=== PATIENT | female | born 1980 | race Hispanic/Latino ===

== ENCOUNTER 2022-05-25 07:30 | Outpatient (RCR) | payer OTHER, SELFPAY ==
--- NOTE | 2022-05-10 16:16 | PTOPEVAL1 ---
Assessment and note entered by Monica Galvin, PT Evaluation Information Assessment Status Evaluation Diagnosis low back pain Onset November 2021 Subjective Information gradual increase in pain in back, off/on for past 6 months, may be due to standing at work; no injury or trauma to back; Reported Pain Level Pain Score Self Report Additional Pain Score Comments pain range of 4-10/10; pressure over R and L lumbar paraspinals; increase with standing and working; decrease with rest, supine, tylenol; have not used heat/ice- instruct on PRN use for pain; with sleeping, take melatonin- do not wake up with pain; Oswestry self assessment functional limitation of 22%; 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 She reports pain increased with standing, working and lifting activities, and eases with resting supine. She continues to do all home and work tasks with increased pain. Self assessment Oswestry score of 22% limitation in activity level. With the evaluation, she has good flexibility of lumbar and hip musculature, with tightness over thoracic spine and pain reproduced over R SIJ with supine R hip flexion, bridging in supine and prone R knee flexion. Skilled PT treatment is indicated for SIJ dysfunction and back pain; modalities for pain control, therapeutic exercises to strengthen trunk and activities for correct posture and body mechanics with lifting and education for home exercises and posture. Plan of Care Interventions Electrical Stimulation,Manual Therapy,Mechanical Traction,Patient/Caregiver Education,Therapeutic Activities,Therapeutic Exercise,Ultrasound PT Services Indicated Yes Treatment Frequency and 1-2x/wk for 4 weeks, 6 visits Duration These treatments will address the objective and functional deficits as defined above. The patient will be advanced safely and appropriately in order for the patient to progress towards his/her prior level of function. Additional exercises will be introduced and as well as a comprehensive home exercise program upon discharge, if needed, ?to ensure carryover of functional gains achieved in the clinic. This treatment plan has been reviewed and agreement upon by the patient.
--- NOTE | 2022-05-19 08:27 | PCPTNOTE ---
Patient did not show up for scheduled appointment this date. Therapist called and left a message on [employer] for the person on file. Therapist let him know that patient is scheduled for her next appointment on 05/23/22 at 0730.
--- NOTE | 2022-05-29 14:25 | PCPTNOTE ---
Patient called & cancelled scheduled appointment this date due to patient being ill.
--- NOTE | 2022-06-08 13:07 | PCPTNOTE ---
pt did not show for today's reeval; called and left a message for pt;
--- NOTE | 2022-07-05 10:22 | PCPTNOTE ---
PHYSICAL THERAPY DISCHARGE 07-05-22 Attending Provider: CHEN Herron Patient:Juana Torrez Date of :1980 Mrs. Torrez has received 3 PT sessions, from May 10 to , for the diagnosis of low back pain. She did not show for 2 and called/canceled 1 appointment. Then, stopped attending therapy. Therefore, she will be discharged at this time. The goals were not addressed. Thank you for referring this patient to [facility].
== END 2022-07-05 11:33 | disposition home or self-care (01) ==
LOC: ANHPT 07:30
PROVIDERS: PCP Registered Nurse; Visit Provider Physician Assistant
DX: M54.2 Cervicalgia (principal)
CPT/HCPCS: 97014; 97110; 97140; 97161; 97530; 99199; G0283

== ENCOUNTER 2022-09-07 16:33 | Outpatient (CLI) | payer OTHER, SELFPAY ==
--- NOTE | ~2022-09-07 | US_ITS ---
EXAMINATION: US transvaginal DATE: 09/07/2022 18:11 INDICATION: Infertility. TECHNIQUE: Multiple transabdominal and transvaginal sonographic images of the pelvis were obtained. COMPARISON: None. FINDINGS: TRANSABDOMINAL ULTRASOUND: The uterus measures 7.9 x 4.4 x 5.0 cm. There is no free fluid in the pelvis. TRANSVAGINAL ULTRASOUND: The endometrial complex measures 5 mm in thickness. The right ovary measures 3.3 x 1.5 x 1.8 cm. The left ovary measures 3.5 x 1.5 x 1.6 cm. There is normal vascular flow in the ovaries. IMPRESSION: 1. Normal pelvis. Reviewed, dictated and finalized at location A. NG MACHINE OPERATOR IMPRESSION: 1. Normal pelvis.
== END 2022-09-07 16:34 | disposition home or self-care (01) ==
LOC: ANHIMG 16:39
PROVIDERS: PCP Physician Assistant; Visit Provider Physician Assistant
DX: Z31.9 Encounter for procreative management, unspecified (principal)
CPT/HCPCS: 76830

== ENCOUNTER 2023-08-20 16:43 | Emergency (ER) | payer OTHER, SELFPAY ==
[2023-08-20 16:50] VITALS: BP 111/65; PULSE 114; RESP 18; TEMP 38.7; O2SAT 100
--- NOTE | 2023-08-20 16:58 | ED.URI ---
HPI - URI/Sore Throat General Chief Complaint: Upper Respiratory Infection Stated Complaint: Fever/Bodyaches Time Seen by Provider: 08/20/23 16:45 Source: patient Mode of arrival: ambulatory Limitations: no limitations History of Present Illness HPI Narrative: Juana is a 43-year-old female patient presenting to the clinic today with complaints of fever and body aches since yesterday. Temperature is a 101? F in the clinic today. MD elicited complaint: sore throat and nasal congestion Related Data Allergies Allergy/AdvReac Type Severity Reaction Status Date / Time No Known Allergies Allergy Verified 08/20/23 17:01 Review of Systems Review of Systems: Pertinent positives per HPI. Patient denies any fever, chills, rash, headache, visual changes, dizziness, cough, shortness of breath, chest pain, palpitations, nausea, vomiting, diarrhea, constipation, abdominal pain, or any urinary issues. PMFSH Comments At the time of my signature, I reviewed and agree with the nursing past medical, surgical, social, and family history. There is no relevant family history pertinent to the patient complaint. Exam Narrative: General: Well-developed, well nourished, in no apparent distress Head: Normocephalic, atraumatic Eyes: Pupils equally round and reactive to light bilaterally, EOM intact, sclera and conjunctive clear, no discharge, lids normal Ears: TMs intact and clear, ear canals clear, no drainage, grossly hearing normal. Nose: Nares patent, clear nasal discharge, no inflammation, no sinus tenderness. Mouth: Oral pharynx without lesions or masses, good dentition, MMM. Neck: Supple, trachea midline, no enlargement of anterior or posterior cervical nodes, no thyroid masses or goiter palpable. Cardio: Regular rate and rhythm, s1 and s2 normal, no murmur appreciated. Resp: Clear to auscultation bilaterally, no rhonchi, rales, wheezing or rubs Course Course Emergency Course: Portions of this record may have been created with voice recognition software. Level of Care: Express Care Visit Vital Signs Vital signs: Vital signs reviewed MDM - URI/Sore Throat MDM Narrative Medical decision making narrative: At the time of visit patient is resting comfortably on the exam table. Patient appears to be nontoxic. COVID and influenza testing was performed. Influenza testing was positive for influenza A. COVID test was negative. Will send in prescription for Tamiflu. Supportive measures were discussed with the patient and they voiced understanding discharge instructions and agrees to treatment plan. Return precautions reviewed Differential Diagnosis Differential diagnosis: Likely upper respiratory infection, otitis media, sinusitis, viral infection, bronchitis, influenza, pharyngitis and other (COVID) Discharge Plan Discharge Clinical Impression: Influenza A Patient Disposition: Home, Self-Care Condition: Stable Instructions: Antibiotic Form, Influenza (ED) Additional Instructions: Take prescription medications only as prescribed-Tamiflu Increase fluids and stay well hydrated Tylenol/motrin for pain/fever Flonase and OTC antihistamines as directed Vicks vapor rub to open sinuses Sinus rinses for congestion Cepacol spray, cough drops, throat lozenges, warm tea with honey/lemon, gargle salt water to soothe throat BRAT diet for diarrhea Clear liquids x 24 hours then advance as tolerated for nausea/vomiting Go to the ED if you develop a worsening in your condition- high fever not controlled by Tylenol or Motrin, dehydration, weakness, lethargy, shortness of breath, or chest pain. Follow up with your PCP in 3-5 days if symptoms persist. Prescriptions: New oseltamivir [Tamiflu] 75 mg capsule 75 mg PO Q12H 5 Days Qty: 10 0RF Follow-up/Referrals: Codey,CHEN De La Garza [Primary Care Provider] - Stand Alone Forms: Work/School Release IP Time of Disposition: 17:07 Quality NIHSS N
== END 2023-08-20 17:15 | disposition home or self-care (01) ==
PROVIDERS: Emergency Provider Nurse Practitioner Family; PCP Physician Assistant
DX: J10.1 Influenza due to other identified influenza virus with other respiratory manifestations (principal)
CPT/HCPCS: 87426; 87804; 99213; G0463